=== PATIENT | female | born 1950 | race Caucasian/White ===

== ENCOUNTER → 2019-11-26 | Outpatient (CLI) | payer MEDICARE, BC ==
[~2019-11-26] MED LIST: ATOR40TA PO; CETI10TA24 PO; RANI150T2 PO; SERT25TA PO
== END | disposition home or self-care (01) ==
LOC: LAB 11:10
PROVIDERS: ATTEND Registered Nurse
DX: Z03.818 Encounter for observation for suspected exposure to other biological agents ruled out (principal)
CPT/HCPCS: 87635

== ENCOUNTER → 2019-11-30 | Day surgery (SDC) | payer MEDICARE, BC ==
[~2019-11-30] MED LIST changes: +IPRATRPIUM/ALBUTEROL 0.5/2.5MG 3 ML NEBU. NEB PRN; +IV RINGERS SOLUTION,LACTATED 1,000 ML IV SCH; +ONDANSETRON PF 4 MG/2 ML VIAL. IV PRN; +PROPOFOL 10,000 MCG/ML (20ML) VIAL IV ONE
[2019-11-30 13:01] VITALS: BP 108/64
--- NOTE | 2019-12-02 12:06 | PATHOLOGY ---
[place] Accession Number: [id number] . 01 Material submitted: . PART A: stomach - GASTRIC PART B: esophagus - DISTAL ESOPHAGUS. Modifiers: distal . 01 Clinical history: . EGD . 02 Diagnosis: A. Gastric "gastric biopsy": - Mild chronic reactive gastropathy. - There is no evidence of atypia or malignancy. . B. Squamous and glandular mucosa "distal esophageal biopsy": - Reflux esophagitis with reactive squamous and glandular mucosa. - There is no evidence of goblet cell metaplasia, dysplasia or malignancy. . (SHA:[facility] 12/02/2019) QTP 12/02/2019 1021 Local . 02 Electronically signed: . Kostas Bartholomew MD, Pathologist NPI- [id number] . 01 Gross description: . A. The specimen is received in formalin labeled "Eiche, Dionne, gastric" and consists of 2 fragments of horner tissue measuring 0.6 x 0.3 x 0.2 cm in aggregate which are entirely submitted in A1. . B. The specimen is received in formalin labeled "Eiche, Dionne, distal esophagus" and consists of a fragment of horner tissue measuring 0.3 x 0.3 x 0.2 cm which is entirely submitted in B1. (J[facility]; 12/01/2019) JFQ/JFQ 12/02/2019 1019 Local . 02 Pathologist provided ICD-10: K31.9 . 02 CPT . 238672, [id number] Specimen Comment: A courtesy copy of this report has been sent to [phone] Specimen Comment: [id number] Specimen Comment: Report sent to / DR MORAN Specimen Comment: A duplicate report has been generated due to demographic updates. Performed at: 01 [facility] [address] [facility] [address], [place] [id number] MD Geoffrey Feng MD Phone: [phone] Performed at: 02 [facility] [address] [place] [id number] MD Aidan Faith MD Phone: [phone]
== END | disposition home or self-care (01) ==
LOC: SURG 09:43
PROVIDERS: ATTEND Emergency Medicine
DX: Z12.11 Encounter for screening for malignant neoplasm of colon (principal); K57.30 Diverticulosis of large intestine without perforation or abscess without bleeding; K22.70 Barrett's esophagus without dysplasia; K29.50 Unspecified chronic gastritis without bleeding; K21.0 Gastro-esophageal reflux disease with esophagitis; K31.9 Disease of stomach and duodenum, unspecified; J45.909 Unspecified asthma, uncomplicated; E78.00 Pure hypercholesterolemia, unspecified; Z87.39 Personal history of other diseases of the musculoskeletal system and connective tissue; Z86.010 Personal history of colon polyps; Z88.1 Allergy status to other antibiotic agents; Z88.8 Allergy status to other drugs, medicaments and biological substances; Z88.6 Allergy status to analgesic agent; Z79.899 Other long term (current) drug therapy
CPT/HCPCS: 43239; 43450; 88305; G0105; J2704; J7120

== ENCOUNTER → 2020-07-03 | Outpatient (CLI) | payer MEDICARE ==
[2019-11-30 13:01] VITALS: BP 108/64
[~2020-07-03] MED LIST changes: -CETI10TA24 PO; +CETI10TA74 PO; -IPRATRPIUM/ALBUTEROL 0.5/2.5MG 3 ML NEBU. NEB PRN; -IV RINGERS SOLUTION,LACTATED 1,000 ML IV SCH; -ONDANSETRON PF 4 MG/2 ML VIAL. IV PRN; -PROPOFOL 10,000 MCG/ML (20ML) VIAL IV ONE
--- NOTE | 2020-07-06 10:44 | RAD ---
DATE: 07/03/2020 12:51 PM EXAM: MAMMO SUSHMA SCREENING BILATERAL HISTORY: Screening COMPARISON: 07/02/2019 Bilateral CC and MLO views of the breasts were performed. Bilateral breast tomosynthesis was performed in CC and MLO projections. This study was interpreted with the benefit of Computerized Aided Detection (CAD). FINDINGS: Breast Density: SCATTERED The breast parenchyma shows scattered fibroglandular densities. Breast parenchyma level B No suspicious masses, microcalcifications or architectural distortion is present to suggest malignancy in either breast. The visualized axillae are unremarkable. IMPRESSION: No mammographic evidence of malignancy. BI-RADS CATEGORY: 1 NEGATIVE RECOMMENDED FOLLOW-UP: 12M 12 MONTH FOLLOW-UP Annual screening mammography is recommended, unless clinically indicated sooner based on symptoms or change in physical exam. PQRS compliance statement: Patient information was entered into a reminder system with a target due date for the next mammogram. Mammography is a sensitive method for finding small breast cancers, but it does not detect them all and is not a substitute for careful clinical examination. A negative mammogram does not negate a clinically suspicious finding and should not result in delay in biopsying a clinically suspicious abnormality. "Our facility is accredited by the [employer] Mammography Program."
== END ==
LOC: MAMMO 12:44
PROVIDERS: ATTEND Family Medicine
DX: Z12.31 Encounter for screening mammogram for malignant neoplasm of breast (principal); N64.89 Other specified disorders of breast
CPT/HCPCS: 77063; 77067

== ENCOUNTER → 2021-08-23 | Outpatient (CLI) | payer MEDICARE ==
[2019-11-30 13:01] VITALS: BP 108/64
--- NOTE | 2021-08-23 16:29 | RAD ---
Digital Mammogram Bilateral History: Routine screening Technique: 2-D digital CC and MLO views were obtained. CAD - computer aided detection was utilize d. Comparison: Mammogram from 07/03/2020.. Findings: Breast Tissue Density B : There are scattered areas of fibroglandular density There are no suspicious masses, malignant appearing calcifications, or areas of architectural distort ion. Impression: No evidence of malignancy. Assessment: BI-RADS Category 1: Negative. Recommendation: Routine screening mammograms. The patient will receive a letter with the results in the mail. Patient information will be entered i nto the mammography reminder system with a target recall date for the next mammogram. A reminder gerard er will be generated. Electronically signed by: Peri Valdez MD (08/23/2021 4:26 PM) [id number]
== END ==
LOC: MAMMO 10:28
PROVIDERS: ATTEND Family Medicine
DX: Z12.31 Encounter for screening mammogram for malignant neoplasm of breast (principal)
CPT/HCPCS: 77067